=== PATIENT | female | born 1955 | race Caucasian/White ===

== ENCOUNTER 2017-01-19 10:44 | Day surgery (SDC) | payer BC ==
[2017-01-19] MEDS ORDERED: NS 100 ML IV 100 ML IV ONE (10:50)
[2017-01-19] MEDS ORDERED: NS 1000 ML 1,000 ML ONE (10:50)
[2017-01-19] MEDS ORDERED: ANCEF VIAL 1 GM ONE (10:51)
[2017-01-19 12:48] LABS: BASOPHILS % (AUTO) 0.5 % (0.2-1.0); EOSINOPHILS # (AUTO) 0.1 x10^3/uL (0.0-0.2); EOSINOPHILS % (AUTO) 2.4 % (0.9-2.9); HEMATOCRIT 37.1 % (36.0-47.0); HEMOGLOBIN 12.4 g/dL (12.0-16.0); LYMPHOCYTES # (AUTO) 1.5 X10^3/uL (1.3-2.9); LYMPHOCYTES % (AUTO) 30.9 % (21.0-51.0); MEAN CORPUSCULAR HEMOGLOBIN 28.6 pg (27.0-34.0); MEAN CORPUSCULAR HGB CONC 33.4 g/dL (33.0-35.0); MEAN CORPUSCULAR VOLUME 85.8 fL (80.0-100.0); MEAN PLATELET VOLUME 7.3 fL (7.4-11.0); MONOCYTES # (AUTO) 0.3 x10^3/uL (0.3-0.8); NEUTROPHILS # (AUTO) 2.9 x10^3/uL (2.2-4.8); NEUTROPHILS % (AUTO) 60.2 % (42.0-75.0); PLATELET COUNT 142 X10^3/uL (150.0-450.0); RED BLOOD COUNT 4.33 X10^6/uL (3.5-5.4); RED CELL DISTRIBUTION WIDTH 14.1 % (11.6-16.5); WHITE BLOOD COUNT 4.8 X10^3/uL (3.6-10.0)
[2017-01-19] MEDS ORDERED: FENTANYL INJ 250 mcg ONE (12:48)
[2017-01-19] MEDS ORDERED: XYLOCAINE 1% and EPINEPHRINE 1:100,000 ONE (13:10)
[2017-01-19] MEDS ORDERED: MARCAINE 0.25% INJ ONE (13:10)
[2017-01-19 13:13] LABS: ALANINE AMINOTRANSFERASE 24 Units/L (12-78); ALBUMIN 3.5 g/dL (3.4-5.0); ALKALINE PHOSPHATASE 57 Units/L (46-116); ASPARTATE AMINO TRANSFERASE 16 Units/L (15-37); BLOOD UREA NITROGEN 14 mg/dL (7-18); CARBON DIOXIDE 28.4 mmol/L (21-32); CHLORIDE 103 mmol/L (98-107); COR NA(FOR HYPERGLY) 142 mmol/L (136-145); CREATININE 0.71 mg/dL (0.55-1.02); SODIUM 141 mmol/L (136-145); eGFR BLACK RACES > 60 (>60); eGFR NON BLACK RACES > 60 (>60)
[2017-01-19] MEDS ORDERED: NORCURON INJ 10 MG VIAL ONE (13:27)
[2017-01-19] MEDS ORDERED: SUPRANE IN ONE (13:27)
[2017-01-19] MEDS ORDERED: XYLOCAINE 2 % (PLAIN) ONE (13:27)
[2017-01-19] MEDS ORDERED: ZOFRAN INJ 4 MG VIAL ONE (13:27)
[2017-01-19] MEDS ORDERED: DIPRIVAN VIAL ONE (13:27)
[2017-01-19] MEDS ORDERED: VERSED ONE (13:27)
[2017-01-19] MEDS ORDERED: ROBINUL ONE (13:27)
[2017-01-19] MEDS ORDERED: QUELICIN (OR ANECTINE) ONE (13:27)
[2017-01-19] MEDS ORDERED: TORADOL 30 MG VIAL ONE (13:27)
[2017-01-19] MEDS ORDERED: NS IRRIGATION 1000 ML 1,000 ML IR ONE (14:00)
[2017-01-19] MEDS ORDERED: NS IRRIGATION 3000 ML 3,000 ML IR ONE (14:45)
--- NOTE | 2017-01-19 15:41 | OR.GENERIC ---
Post-Op Note Generic - Post-Op Note Operative Report: Operative Report Date of Operation: January 19, 2017 Pre-Operative Diagnosis: 1. Cholelithiasis. 2. Chronic cholecystitis. Post-Operative Diagnosis: 1. Cholelithiasis. 2. Chronic cholecystitis. Procedure: Laparoscopic cholecystectomy. Surgeon: Marvin Houser MD. Member Services Representative: Nia Cloud CRNA. Specimen: Gallbladder. Estimated blood loss: Minimal. Complications: None. Summary: The patient is a 61 year old female who presented with cholelithiasis and chronic cholecystitis. The patient was offered cholecystectomy. The risk and benefits of the procedure including difficulty with anesthesia, bleeding, infection, conversion to open procedure, bile leak, hernia formation, DVT, as well as PE were discussed with the patient. The patient understood these risks and requested the procedure. On January 19, 2017, the patient was brought to the operative theatre. A time out was performed verifying the patient and procedure. The patient received Ancef for pre-operative antibiosis. After satisfactory induction of general endotracheal anesthesia, the abdomen was prepped with Chloraprep and draped in the usual sterile fashion. The skin and subcutaneous tissue inferior to the umbilicus was anesthetized using local anesthetic. The skin was incised sharply. A 12 mm trocar was placed though the incision and into the peritoneal cavity using the Optiview technique. Carbon dioxide was infiltrated through this trocar to obtain a pneumoperitoneum of 15 mm Hg. A camera was placed through this trocar and swept in all directions. No injury was seen from entering the peritoneal cavity. A site was selected in the subxiphoid location for our 2nd trocar. The skin and fascia was anesthetized using local anesthetic. The skin was incised sharply. A 5 mm trocar was placed into the peritoneal cavity under direct visualization. In a similar manner, two additional 5 mm trocars were placed. The first was placed in the mid- clavicular line approximately 2 fingerbreadths inferior to the left costal margin and a second in the anterior axillary line approximately 2 fingerbreadths inferior to the left costal margin. The patient was placed in reverse Trendelenburg and rotated to the patients left. The gallbladder was grasped at the fundus and elevated cephalad and slightly lateral. Dense omental attachments were taken down using blunt dissection and electrocautery. The peritoneum on the medial and lateral aspects of the infundibulum of the gallbladder was scored using hook electrocautery. Using blunt dissection, the cystic artery and duct were isolated. The critical view of safety was obtained. Both of these structures were divided between endoclips. The gallbladder was dissected free using hook electrocautery. The gallbladder was placed in an endobag and removed through the umbilical trocar site without difficulty. The trocar and camera were placed back inside the abdomen. Our clips were noted in good position. Bleeding of the gallbladder fossa was controlled using electrocautery. At this point, the 5 mm trocars were removed under direct visualization. No bleeding was seen. The umbilical trocar was then removed and pneumoperitoneum released. The fascia at the umbilicus was closed using a 0-Vicryl placed in a [id number] configuration. The skin edges at all incisions were re-approximated using inverted, interrupted 4-0 Monocryl sutures. Mastisol and Steri-strips were placed. Sterile dressings were placed. The patient was awakened and taken to the recovery room in stable condition. There were no complications. All counts were correct.
[2017-01-19] MEDS ORDERED: PHENERGAN INJ 25 MG IVP PRN (15:46)
[2017-01-19] MEDS ORDERED: ZOFRAN INJ 4 MG VIAL IVP PRN (15:46)
[2017-01-19] MEDS ORDERED: DILAUDID INJ IVP PRN (15:46)
[2017-01-19] MEDS ORDERED: BENADRYL INJ 50 MG VIAL IVP PRN (15:46)
[2017-01-19] MEDS ORDERED: REGLAN INJ 10 MG VIAL IVP PRN (15:46)
[2017-01-19 17:22] VITALS: BP 153/68
== END 2017-01-19 17:15 | disposition home or self-care (01) ==
LOC: SURG1 10:44
PROVIDERS: ATTEND Student in an Organized Health Care Education/Training Program
PROC: 0FT44ZZ Resection of Gallbladder, Percutaneous Endoscopic Approach (ICD-10-PCS; principal; 2017-01-19 08:30)
DX: K80.50 Calculus of bile duct without cholangitis or cholecystitis without obstruction (principal); K81.1 Chronic cholecystitis
CPT/HCPCS: 36415; 80053; 85025; 93005; 93010; A4216; A4222; S0020; J0330; J0690; J1885; J2001; J2250; J2405; J3010; J3490